=== PATIENT | male | born 1965 | race Caucasian/White ===

== ENCOUNTER → 2021-05-26 | Day surgery (SDC) | payer BC ==
[~2021-05-26] MED LIST: ASCORBIC ACID; MULTI-VITAMIN1 EACH PO; VIT D OTC; ZINC OTC
== END | disposition home or self-care (01) ==
LOC: OR 07:02
DX: Z12.11 Encounter for screening for malignant neoplasm of colon (principal); D12.4 Benign neoplasm of descending colon; K57.30 Diverticulosis of large intestine without perforation or abscess without bleeding; N40.0 Benign prostatic hyperplasia without lower urinary tract symptoms; K21.9 Gastro-esophageal reflux disease without esophagitis
CPT/HCPCS: J2405; J2704; J7120

== ENCOUNTER → 2021-05-28 | Outpatient (CLI) | payer BC | LOC: KOH-I 08:04 | DX: T17.910A Gastric contents in respiratory tract, part unspecified causing asphyxiation, initial encounter (principal); R91.8 Other nonspecific abnormal finding of lung field | CPT/HCPCS: 71046 ==